=== PATIENT | male | born 1950 | race Caucasian/White ===

== ENCOUNTER → 2016-11-01 | Outpatient (CLI) | payer OTHER ==
--- NOTE | ~2016-11-01 | US77 ---
[facility] A Service of [facility] & [facility] RADIOLOGY TEXT RESULTS PATIENT: EPHRAIM DOSS LOCATION: [facility] : 50 UNIT #: [id number] AGE: [address]: Vee Smith MD SEX: M ORDER DR: [id number] [facility] [address] [place], [place] [address] [id number] MR#: [id number] Acc #: [id number] NAME: EPHRAIM DOSS : 1950 SEX: M STUDY DATE/TIME: 11/01/2016 14:25 UNIT: [facility] ROOM: STUDY DESCRIPTION: US Kidney Bilateral Complete Attending Physician: Vee Smith M.D. Referring Physician: Vee Smith M.D. Ordering Physician: Vee Smith M.D. Primary Care Physician: Nathen Correa M.D. MEDICAL IMAGING REPORT This report is preliminary unless electronic signature is present EXAM Renal ultrasound complete, 11/01/2016 HISTORY Chronic kidney disease stage 4, followup. Abnormal renal function test today, elevated BUN of 36, elevated creatinine of 2.74. Abnormally low GFR of 23. FINDINGS The right kidney measured 7.4 cm while the left kidney measured 9.7 cm in longitudinal dimensions. There is no evidence of hydronephrosis or nephrolithiasis. There is a 4 cm cyst on the right kidney. On the left kidney there is an indeterminate hypoechoic mass measuring 2 cm in diameter. This finding contains internal echoes and cannot be classified as a cyst. An additional 8 mm indeterminate hypoechoic lesion is also seen on the left kidney. If the patient's renal function improves suggest correlation with CT scan of the kidneys with contrast using dedicated renal protocol or renal MRI with contrast. If the patient's renal function does not improve, the patient cannot receive contrast. At a minimum followup ultrasound should be performed in 6 months to assess the left renal lesions for stability. Both kidneys demonstrate cortical thinning. There is normal renal cortical echogenicity. Images of the bladder are normal. IMPRESSION 1. Kidneys appear mildly atrophic bilaterally. Right renal cyst is noted. 2. Two indeterminate hypoechoic masses on the left kidney which contain internal echoes and cannot be calcified as cysts. If the patient's renal function improves recommend correlation with either CT scan the kidneys with contrast using dedicated renal protocol or renal MRI with contrast for possible characterization of these findings. If [facility] A Service of [facility] & [facility] RADIOLOGY TEXT RESULTS PATIENT: EPHRAIM DOSS LOCATION: [facility] #: [id number] : 50 UNIT #: [id number] AGE: [address]: Vee Smith MD SEX: M ORDER DR: the patient's renal function does not improve at a minimum followup renal ultrasound should be performed in 6 months to assess the lesions for stability. 3. Both kidneys demonstrate cortical thinning. 4. Images of the bladder are normal. Dictated by... Ben Traore M.D. THIS IS AN ELECTRONICALLY VERIFIED REPORT Ben Traore M.D. at 11/02/2016 7:25 AM STEVEN/merari TD: 11/02/2016 04:04 JOB #: [id number] MEDICAL IMAGING REPORT Page 1 of 1 COPY
== END | disposition home or self-care (01) ==
LOC: CGUS 14:05
DX: N18.9 Chronic kidney disease, unspecified (principal); N28.1 Cyst of kidney, acquired
CPT/HCPCS: 76770